=== PATIENT | male | born 1985 | race Two or more races ===

== ENCOUNTER 2017-10-23 13:43 | Emergency (ER) | payer OTHER ==
[~2017-10-23] VITALS: Ht 157.5 cm; Wt 68.0 kg
== END 2017-10-23 18:45 | disposition home or self-care (01) ==
LOC: ER 13:43
DX: S81.811A Laceration without foreign body, right lower leg, initial encounter (principal); W25.XXXA Contact with sharp glass, initial encounter; Y93.89 Activity, other specified; Y92.89 Other specified places as the place of occurrence of the external cause; Y99.8 Other external cause status